=== PATIENT | male | born 1990 | race Caucasian/White ===

== ENCOUNTER 2019-06-30 17:35 | Emergency (ER) | payer MEDICAID ==
[~2019-06-30] VITALS: Ht 170.2 cm; Wt 99.5 kg
[2019-06-30 17:56] VITALS: BP 143/94
--- NOTE | 2019-06-30 18:15 | NUR ---
PT BIB SELF C/O COLD SYMPTOMS. PT REPORTS COUGH WITH THIN CLEAR GREENISH PHLEM, RUNNY NOISE, SORE THROAT, AND BODY ACHES. PT DENIES N/V/D OR FEVER. VSS. ER TO SEE PT. MEDHX:DENIES RX:DENIES
--- NOTE | 2019-06-30 18:19 | NUR ---
YEHUDA TATE AT BEDSIDE
[2019-06-30] MEDS ORDERED: IBUPROFEN 800 MG TAB PO ONE (18:30)
--- NOTE | 2019-06-30 18:55 | NUR ---
Patient discharged with v/s stable. Written and verbal after care instructions given and explained. Patient alert, oriented and verbalized understanding of instructions. Ambulatory with steady gait. All questions addressed prior to discharge. ID band removed. Patient advised to follow up with PMD. Rx of MOTRIN, PROMETHAZINE,TAMIFLU given. Patient educated on indication of medication including possible reaction and side effects. Opportunity to ask questions provided and answered.
== END 2019-06-30 18:55 | disposition home or self-care (01) ==
LOC: MED 17:35
DX: B34.9 Viral infection, unspecified (principal)
CPT/HCPCS: 87804; 99283